=== PATIENT | male | born 1985 | race Caucasian/White ===

== ENCOUNTER 2020-07-05 09:45 | Emergency (ER) | payer OTHER ==
[~2020-07-05] VITALS: Ht 188 cm; Wt 98.0 kg
[2020-07-05] MEDS ORDERED: IV NORMAL SALINE 1,000ML 1,000 ML IV SCH (09:54)
[2020-07-05] MEDS ORDERED: ASPIRIN CHEWABLE 81 MG TABLET. PO ONE (10:00)
--- NOTE | 2020-07-05 10:12 | RAD ---
PORTABLE CHEST 1V History: Reason: CP / Spl. Instructions: / History: Comparison: None. Findings: No consolidation or pleural effusion. Normal heart size. No pneumothorax. Impression: 1. No acute cardiopulmonary process. Electronically signed by: Deonte Winston DO (07/05/2020 10:10 AM) [id number]
[2020-07-05] MEDS ORDERED: FAMOTIDINE 20 MG/2 ML VIAL IVP ONE (10:15)
[2020-07-05] MEDS ORDERED: PANTOPRAZOLE IV 40 MG VIAL. IVP ONE (10:15)
--- NOTE | 2020-07-05 10:16 | PHYS DOC ---
General Adult EDM: Chief Complaint: CHEST PAIN HPI: HPI: 35-year-old male presents with chest pain. Patient states this started around midnight. He has had intermittent pain last couple of days that he just thought was heartburn. It became more persistent at midnight. He has been feeling like he is having PVCs. He is felt these before. Today he felt like he had a longer run of pounding heartbeat which has improved since coming to the emergency room. He still has a 7 out of 10 chest pressure. He has had stress test in the past but no cardiac cath. They are not watching any vessels as far as he is aware. He denies fever or chills. He has no other complaints at this time. Review of Systems: Review of Systems: Constitutional: Denies fever or chills Eyes: Denies change in visual acuity HENT: Denies nasal congestion or sore throat Respiratory: Denies cough or shortness of breath Cardiovascular: Chest pain GI: Denies abdominal pain, nausea, vomiting, bloody stools or diarrhea : Denies dysuria Musculoskeletal: Denies back pain or joint pain Integument: Denies rash Neurologic: Denies headache, focal weakness or sensory changes Endocrine: Denies polyuria or polydipsia Lymphatic: Denies swollen glands Psychiatric: Denies depression or anxiety Heart Score: HEART Score for Chest Pain: HEART Score for Chest Pain Response (Comments) Value History Moderately Suspicious 1 ECG Normal 0 Age < 45 0 Risk Factors 1 or 2 Risk Factors 1 Troponin < Normal Limit 0 Total 2 Risk Factors: Risk Factors: DM, Current or recent (<one month) smoker, HTN, HLP, family history of CAD, obesity. Risk Scores: Score 0 - 3: 2.5% MACE over next 6 weeks - Discharge Home Score 4 - 6: 20.3% MACE over next 6 weeks - Admit for Clinical Observation Score 7 - 10: 72.7% MACE over next 6 weeks - Early Invasive Strategies Current Medications: Current Meds: Current Medications Medications (Trade) Dose Ordered Sig/Susan Start Time Stop Time Status Last Admin Dose Admin Aspirin (Aspirin Chewable) 324 mg 1X ONCE 07/05/20 10:00 07/05/20 10:01 UNV Sodium Chloride 1,000 ml @ 1,000 mls/hr Q1H 07/05/20 09:54 07/05/20 10:53 UNV Physical Exam: PE: Constitutional: Well developed, well nourished, no acute distress, non-toxic appearance. [] HENT: Normocephalic, atraumatic, bilateral external ears normal, oropharynx moist, no oral exudates, nose normal. [] Eyes: PERRLA, EOMI, conjunctiva normal, no discharge. [] Neck: Normal range of motion, no tenderness, supple, no stridor. [] Cardiovascular: Heart rate regular rhythm, no murmur [] Lungs & Thorax: Bilateral breath sounds clear to auscultation [] Abdomen: Bowel sounds normal, soft, no tenderness, no masses, no pulsatile masses. [] Skin: Warm, dry, no erythema, no rash. [] Back: No tenderness, no CVA tenderness. [] Extremities: No tenderness, no cyanosis, no clubbing, ROM intact, no edema. [] Neurologic: Alert and oriented X 3, normal motor function, normal sensory function, no focal deficits noted. [] Psychologic: Affect normal, judgement normal, mood normal. [] EKG: EKG: [] Radiology/Procedures: Radiology/Procedures: [] Impressions: PORTABLE CHEST 1V History: Reason: CP / Spl. Instructions: / History: Comparison: None. Findings: No consolidation or pleural effusion. Normal heart size. No pneumothorax. Impression: 1. No acute cardiopulmonary process. Electronically signed by: Deonte Wheeler DO (07/05/2020 10:10 AM) [id number] DICTATED AND SIGNED BY: DEONTE WHEELER DO DATE: 07/05/20 1010 CC: ZEYAD LUCIANO DO; PCP,ANUSKHA Angulo Course & Med Decision Making: Course & Med Decision Making Pertinent Labs and Imaging studies reviewed. (See chart for details) The patient's labs are unremarkable. His chest x-ray is unremarkable. His EKG is unremarkable. His urinalysis shows alcohol and marijuana. I suspect this is something to do with his symptoms. I do not believe this is cardiopulmonary in nature. He does not meet admission criteria. He is stable for discharge at this time. [] Dragon Disclaimer: Dragon Disclaimer: This electronic medical record was generated, in whole or in part, using a voice recognition dictation system. Departure Departure: Impression: Primary Impression: Chest pain Qualified Codes: R07.2 - Precordial pain Disposition: 01 DC HOME SELF CARE/HOMELESS Condition: STABLE Referrals: PCPANUSHKA (PCP) Patient Instructions: Chest Pain (Nonspecific), Sheb-yu-Ayol ZEYAD LUCIANO DO Jul 05, 2020 10:16
--- NOTE | 2020-07-05 10:21 | EKG ---
[address] [address] Test Date: 2020-07-05 Test Time: 09:50:19 Pat Name: ANNE PINEDA Department: Room: Gender: M [employer] Helper: VINOD : 1985 Requested By: ZEYAD LUCIANO Order Number: [id number] Reading MD: Measurements Intervals [place] Rate: 80 P: 38 MO: 140 QRS: 9 QRSD: 94 T: 28 QT: 404 QTc: 470 Interpretive Statements SINUS RHYTHM NORMAL ECG RI6.02 No previous ECG available for comparison
[2020-07-05 10:38] LABS: BASO # 0.1 x10^3/uL (0.0-0.2); BASO % 1 % (0-3); EOS # 0.2 x10^3/uL (0.0-0.7); EOS % 2 % (0-3); HEMATOCRIT 49.2 % (39.0-53.0); HEMOGLOBIN 16.6 g/dL (13.0-17.5); LYMPH # 1.7 x10^3/uL (1.0-4.8); LYMPH % 21 % (24-48); MEAN CORPUSCULAR HEMOGLOBIN 31 pg (25-35); MEAN CORPUSCULAR HGB CONC 34 g/dL (31-37); MEAN CORPUSCULAR VOLUME 91 fL (79-100); MONO # 0.7 x10^3/uL (0.0-1.1); MONO % 8 % (0-9); NEUT # 5.5 x10^3uL (1.8-7.7); NEUT % 67 % (31-73); PLATELET COUNT 219 x10^3/uL (140-400); RED BLOOD COUNT 5.44 x10^6/uL (4.30-5.70); RED CELL DISTRIBUTION WIDTH 13.8 % (11.5-14.5); WHITE BLOOD COUNT 8.2 x10^3/uL (4.0-11.0)
[2020-07-05 10:47] LABS: CALCIUM 8.4 mg/dL (8.5-10.1); GFR 84.5; POTASSIUM 3.8 mmol/L (3.5-5.1)
[2020-07-05 10:53] LABS: ALBUMIN 3.7 g/dL (3.4-5.0); ALBUMIN/GLOBULIN RATIO 1.1 (1.0-1.7); TOTAL BILIRUBIN 0.2 mg/dL (0.2-1.0); TOTAL PROTEIN 7.2 g/dL (6.4-8.2)
[2020-07-05 11:44] LABS: AMPHETAMINE/METHAMPHETAMINE NEG (NEG); BARBITURATES NEG (NEG); BENZODIAZEPINES NEG (NEG); CANNABINOIDS POS (NEG); COCAINE NEG (NEG); METHADONE NEG (NEG); OPIATES NEG (NEG); PHENCYCLIDINE NEG (NEG)
[2020-07-05 12:00] VITALS: BP 130/81
[2020-07-05 12:01] LABS: CLARITY,URINE CLEAR; COLOR,URINE YELLOW
[2020-07-05 12:02] LABS: BACTERIA,URINE 0 /HPF (0-FEW); BILIRUBIN,URINE NEG (NEG); GLUCOSE,URINE NEG (NEG); NITRITE,URINE NEG (NEG); SQUAMOUS EPITHELIAL CELL,UR OCC /LPF
== END 2020-07-05 12:20 | disposition home or self-care (01) ==
LOC: ER 09:45
DX: R07.2 Precordial pain (principal)
CPT/HCPCS: 36415; 71045; 80053; 80307; 81001; 84484; 85025; 93005; 96361; 96374; 96375; 99285; C9113; J3490; J7030